=== PATIENT | male | born 1980 | race African-American/Black ===

== ENCOUNTER 2017-03-04 20:53 | Emergency (ER) | payer SELFPAY ==
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
== END 2017-03-04 22:53 | disposition home or self-care (01) ==
LOC: CFTX 20:53
DX: S76.012A Strain of muscle, fascia and tendon of left hip, initial encounter (principal); S20.212A Contusion of left front wall of thorax, initial encounter; S70.12XA Contusion of left thigh, initial encounter; X58.XXXA Exposure to other specified factors, initial encounter; Y92.9 Unspecified place or not applicable
CPT/HCPCS: 70450; 71020; 73080; 73502; 73552; 99284